=== PATIENT | female | born 1985 | race African-American/Black ===

== ENCOUNTER 2025-04-21 11:12 | Emergency (ER) | payer MEDICARE, MEDICAID ==
[~2025-04-21] VITALS: Ht 165.1 cm; Wt 63.6 kg
[~2025-04-21 11:12] MED LIST: [UNRECOGNIZED DRUG - REMARK]
[2025-04-21 11:19] VITALS: TEMP 98.1
[2025-04-21 12:15] VITALS: BP 122/87; PULSE 85; RESP 17; O2SAT 99
[2025-04-21] MEDS: ACETAMINOPHEN 500 MG TABLET PO ONE (12:40)
== END 2025-04-21 14:44 | disposition home or self-care (01) ==
LOC: EMS 11:12
DX: G89.29 Other chronic pain (principal); M54.50 Low back pain, unspecified; F12.90 Cannabis use, unspecified, uncomplicated
CPT/HCPCS: 99282; Z7502; Z7610